=== PATIENT | female | born 1965 | race African-American/Black ===

== ENCOUNTER 2019-06-06 03:06 | Emergency (ER) | payer SELFPAY ==
[~2019-06-06] VITALS: Ht 167.6 cm; Wt 82.0 kg
[2019-06-06 04:42] LABS: BASOPHILS % 0.6 % (0.0-2.0); EOSINOPHILS % 2.2 % (0.0-5.0); HEMATOCRIT. 37.8 % (36.0-48.0); HEMOGLOBIN. 12.6 g/dL (12.0-16.0); LYMPHOCYTES % 22.5 % (20.0-50.0); MEAN CORPUSCULAR HEMOGLOBIN 27.2 pg (28.0-32.0); MEAN CORPUSCULAR VOLUME 81.7 fL (81.0-99.0); MEAN PLATELET VOLUME 9.3 fl (7.4-10.4); MONOCYTES % 5.8 % (2.0-8.0); NEUTROPHILS % 68.9 % (40.0-76.0); PLATELET 209 x1000/uL (130-400); RED BLOOD CELL COUNT 4.63 mill/uL (4.2-5.4)
[2019-06-06 04:46] LABS: CHLORIDE 111 mEq/L (98-107); HCG SCREEN NEGATIVE
[2019-06-06 04:50] LABS: ETHANOL BLOOD < 10 mg/dL
[2019-06-06] MEDS ORDERED: ACETAMINOPHEN 325MG TABLET PO ONE (05:45)
[2019-06-06 05:55] LABS: CLARITY URINE CLEAR (CLEAR); COLOR URINE YELLOW (YELLOW); KETONES URINE NEGATIVE (NEGATIVE); LEUKOCYTE ESTERASE URINE 1+ (NEGATIVE); NITRITE URINE NEGATIVE (NEGATIVE); OCCULT BLOOD URINE NEGATIVE (NEGATIVE); PH URINE 5.5 (4.5-8.0); PROTEIN URINE NEGATIVE (NEGATIVE); SPECIFIC GRAVITY URINE 1.029 (1.005-1.030)
[2019-06-06 06:03] LABS: *AMPHETAMINES SCREEN URINE NEGATIVE (NEGATIVE)
[2019-06-06 06:04] LABS: *BARBITURATES SCREEN URINE NEGATIVE (NEGATIVE); *BENZODIAZEPINES SCREEN URINE NEGATIVE (NEGATIVE); *COCAINE SCREEN URINE PRESUMTIVE POSITIVE (NEGATIVE); METHADONE URINE SCREEN NEGATIVE (NEGATIVE); OPIATES URINE SCREEN NEGATIVE (NEGATIVE); PHENCYCLIDINE URINE SCREEN NEGATIVE (NEGATIVE)
[2019-06-06 06:05] LABS: CANNABINOID URINE SCREEN NEGATIVE (NEGATIVE)
[2019-06-06] MEDS ORDERED: IBUPROFEN 600MG TABLET PO ONE (14:00)
[2019-06-06] MEDS ORDERED: IBUPROFEN 400MG TABLET PO ONE (19:15)
[2019-06-06 20:11] VITALS: BP 128/82
== END 2019-06-06 20:12 ==
LOC: ER 03:06
DX: R45.851 Suicidal ideations (principal); R44.0 Auditory hallucinations; F32.9 Major depressive disorder, single episode, unspecified; Z98.890 Other specified postprocedural states
CPT/HCPCS: 36415; 71045; 73130; 80305; 80307; 80320; 80329; 81003; 84703; 99285; G0480